=== PATIENT | male | born 1990 | race African-American/Black ===

== ENCOUNTER 2017-04-06 15:25 | Emergency (ER) | payer OTHER ==
[~2017-04-06] VITALS: Ht 160 cm; Wt 61.7 kg
[2017-04-06 15:50] LABS: PLATELET COUNT 206 K/uL (142-355)
[2017-04-06 15:57] LABS: SODIUM 136 mmol/L (136-145)
[2017-04-06 16:32] VITALS: BP 135/98; TEMP 97.7
== END 2017-04-06 16:33 | disposition home or self-care (01) ==
LOC: ED 15:25
DX: R23.8 Other skin changes (principal); R74.0 Nonspecific elevation of levels of transaminase and lactic acid dehydrogenase [LDH]
CPT/HCPCS: 36415; 80053; 85027; 96365; 99284; J0696